=== PATIENT | female | born 1960 | race Caucasian/White ===

== ENCOUNTER 2016-10-04 10:16 | Outpatient (CLI) | payer MEDICARE ==
[~2016-10-04] VITALS: Ht 152.4 cm; Wt 79.0 kg
--- NOTE | ~2016-10-04 | HEMODYNAMI ---
PATIENT:SUZANNA GAXIOLA MEDICAL RECORD: [id number] : 58 LOCATION:[facility]# [id number] ADMISSION DATE: 10/04/16 Generatedon:10/04/201611:36 Patient name: SUZANNA GAXIOLA Patient #: [id number] SSN: [id number] : 1960 Date of study: 10/04/2016 Page: Of Hemodynamic Procedure Report Patient Data Patient Demographics Procedure consent was obtained First Name: SUZANNA Gender: Female Last Name: KHALIDA : 1960 Patient #: [id number] Age: 56 year(s) Race: Unknown SSN: [id number] Additional ID: [id number] Contact details Address: [address] [place] [address] [address] State: [place] City: [place] Zip code: [address] Admission Admission Data Admission Date: 10/04/2016 Admission Time: 10:16 Arrival Date: 10/04/2016 Arrival Time: 10:16 Admit Source: Emergency department Height (in.): 64 BSA: 1.83 (m2) Height (cm.): 162.56 BMI: 29.18 (kg/m2) Weight (lbs.): 170 Weight (kg.): 77.11 Lab Results Lab Result Date: 10/04/2016 Lab Result Time: 0:00 Biochemistry Name Units Result Min Max BUN mg/dl 14 --(--*-)-- 7 18 Creatinine mg/dl 1.1 --(--*-)-- 0.6 1.3 CBC Name Units Result Min Max Hemoglobin g/dl 16.2 --(--*-)-- 13.5 17.5 Procedure Procedure Types Cath Procedure Diagnostic Procedure LHC LHC w/Coronaries PCI Procedure AMI-BMS/SANJUANA Initial Miscellaneous Procedures Moderate Sedation up to 30 minutes Procedure Description Procedure Date Procedure Date: 10/04/2016 Procedure Start Time: 11:13 Procedure End Time: 11:29 Procedure Staff Name Function Souleymane Irving MD Performing Physician Sudha Awan RT Scrub Yenny Ervin RN Nurse Nat Blount RT Monitor Indication Chest pain Procedure Data Cath Procedure Fluoroscopy Diagnostic fluoroscopy Total fluoroscopy Time: 3.1 time: 3.1 min min Diagnostic fluoroscopy Total fluoroscopy dose: dose: 292.48 mGy 292.48 mGy Contrast Material Contrast Material Type Amount (ml) Isovue 370 90 Entry Location Entry Primary Successful Side Size Upsize Upsize Entry Closure Succes sful Closure Location (Fr) 1 (Fr) 2 (Fr) Remarks Device Remarks Femoral Right 6 Fr Exoseal artery Short Estimated blood loss: 5 ml Procedure Complications No complications Procedure Medications Medication Administration Route Dosage Oxygen NC 2 l/min Heparin Flush Bag added to field 2 bags (1000units/500ml NS) Lidocaine 2% added to field 20 Versed I.V. 0.5 mg Fentanyl I.V. 50 mcg Heparin Bolus I.V. 2000 units Integrilin (Bolus I.V. 6.8 ml 2mg/ml) Hemodynamics Rest BSA: 1.83 (m2) HGB: 16.2 (g/dl) O2 Consumption: Estimated: 175.06 (ml/min) O2 Co nsumption indexed: Estimated:95.66 (ml/min/m) Heart Rate: 70 (bpm) Pressure Samples Time Site Value (mmHg) Purpose Heart Use Rate(bpm) 11:19 LV 129/34,36 Snapshot 64 Gradients Valve Time Site Site Mean SEP/DFP Peak To Heart Use 1 2 (mmHg) (sec/min) Peak Rate (mmHg) (bpm) Aortic 11:19 LV AO 77 Snapshots Pre Cath Intra NCS Post Cath Vital Signs Time Heart Resp SPO2 NIBP (mmHg) Rhythm Pain Status Sedation Rate (ipm) (%) Level (bpm) 11:02:28 73 12 96 136/80(108) NSR 5 (11) , 10(A) Very distressing 11:07:04 71 16 98 142/67(96) NSR 5 (11) , 10(A) Very distressing 11:11:35 69 17 95 111/75(101) NSR 0 (11) , No 10(A) pain 11:15:57 73 29 97 115/67(97) NSR 0 (11) , No 9(A) pain 11:20:21 80 18 97 118/69(95) NSR 0 (11) , No 9(A) pain 11:24:45 70 16 96 121/69(93) NSR 0 (11) , No 9(A) pain 11:29:07 75 18 98 124/67(96) NSR 0 (11) , No 9(A) pain Medications Time Medication Route Dose Verified Delivered Reason Notes Effectiveness by by 11:08:41 Oxygen NC 2 Souleymane Ramon Per physician l/min St. Jaret Ervin RN, MD 11:08:51 Heparin Flush added 2 Souleymane Comer used for Bag to bags [facility] procedure (1000units/500ml field MD OCAMPO NS) 11:08:59 Lidocaine 2% added 20ml Souleymane Comer used for to vial [facility] procedure field MD OCAMPO 11:09:09 Versed I.V. 0.5 Souleymane Ramon for sedation mg [facility]. Jaret Ervin RN, MD 11:09:14 Fentanyl I.V. 50 Souleymane Ramon for sedation mcg [facility]. Jaret Ervin RN, MD 11:20:16 Heparin Bolus I.V. 2000 Souleyamne Ramon for dose units St. Jaret Ervin RN anticoagulation verified MD with dr coles 11:23:46 Integrilin I.V. 6.8 Souleymane [place] for wasted (Bolus 2mg/ml) ml St. Jaret Ervin RN antiplatelet 3.2 ml therapy Procedure Log Time Note 10:35:29 Informed consent obtained and on chart 10:35:33 Admit Source: Emergency department 10:35:37 Arrival Date: 10/04/2016 10:16:00 AM 10:35:58 Diagnostic Cath Status : Emergency 10:36:26 Indication : Chest pain 10:36:29 Yenny Ervin RN sent for patient. Start room use. 10:36:30 Time tracking: Regular hours 10:36:34 Plan of Care:Hemodynamics will remain stable., Cardiac rhythm will remain stable., Comfort level will be maintained., Respiratory function will remain adequate., Patient/ family verbilizes understanding of procedure., Procedure tolerated without complication., Recovers from procedure without complications.. 10:54:58 Patient received from ED to CCL 3 Alert and oriented. Tansferred to table in Supine position. 10:54:59 Warm blankets applied, and sarah hugger turned on for patient comfort. 10:55:00 Correct patient and procedure confirmed by team. 10:55:00 ECG and BP/O2 sat monitors applied to patient. 11:00:55 Vital chart was started 11:00:57 Baseline sample Acquired. 11:01:07 Rhythm: sinus rhythm , w/ ST elevation 11:01:08 Full Disclosure recording started 11:01:14 H&P Date Dictated: 10/04/2016 New H&P dictated by physician.. 11:01:15 Pre-procedure instructions explained to patient. 11:01:16 Pre-op teaching completed and patient verbalized understanding. 11:01:17 Family in waiting room. 11:01:18 Patient NPO since Midnight. 11:03:52 Is the patient allergic to Iodine/contrast media? No. 11:03:53 Was the patient premedicated? No 11:03:54 Is patient on blood thinner?Yes 11:03:58 ACC The patient was administered the following blood thiners within the last 24 hours: ACCPlavix 11:04:04 Patient diabetic? No. 11:04:06 Previous problem with sedation/anesthesia? No ? 11:04:08 Snore? Yes 11:04:09 Sleep apnea? No 11:04:10 Deviated septum? No 11:04:11 Opens mouth fully? Yes 11:04:11 Sticks out tongue? Yes 11:04:13 Airway obstruction? No ? 11:04:16 Dentures? No ? 11:04:20 Pre procedure: right dorsailis pedis pulse 1+ Palpable, but thready & weak; easily obliterated 11:04:25 Patient pain scale 5/10 ?. 11:04:34 IV patent on arrival in left forearm with 0.9% NaCl at O. 11:05:11 Lab results completed and on chart. 11:05:19 Right groin area was prepped with chlora-prep and draped in sterile fashion 11:05:21 Alarms reviewed by RShakir N. 11:05:21 Sharps counted by scrub and verified by R.N. 11:05:23 Physician arrived 11:05:24 --------ALL STOP TIME OUT------ 11:05:25 Final Timeout: patient, procedure, and site verified with staff and physician. All members of the team are in agreement. 11:05:27 Right groin site verified by team. 11:05:47 Physical assessment completed. ASA score P 2 - A patient with mild systemic disease as per Souleymane Irving MD. 11:05:51 Sedation plan: IV Moderate Sedation Versed, Fentanyl 11:06:05 Use device set Femoral PCI 11:06:06 Acist Syringe opened to sterile field. 11:06:07 Acist Hand Control opened to sterile field. 11:06:07 Bag Decanter opened to sterile field. 11:06:08 Medline Cath Pack opened to sterile field. 11:06:08 Terumo 6Fr Compton Sheath opened to sterile field. 11:06:10 St Chester 260cm J .035 wire opened to sterile field. 11:06:10 Merit BasixCompak Inflation Kit opened to sterile field. 11:06:11 Acist Manifold opened to sterile field. 11:06:12 Tegaderm 4 x 4 opened to sterile field. 11:08:41 Oxygen 2 l/min NC was administered by Yenny Ervin RN; Per physician; 11:08:51 Heparin Flush Bag (1000units/500ml NS) 2 bags added to field was administered by Souleymane Irving MD; used for procedure; 11:08:59 Lidocaine 2% 20ml vial added to field was administered by Souleymane Irving MD; used for procedure; 11::09 Versed 0.5 mg I.V. was administered by Yenny Ervin RN; for sedation; 11:09:14 Fentanyl 50 mcg I.V. was administered by Yenny Ervin RN; for sedation; 11:11:02 Zero performed for pressure channel P1 11:12:52 Procedure started. 11:13:04 Local anesthetic to right femoral artery with Lidocaine 2% by Souleymane Irving MD.INITIAL ACCESS ONLY 11:13:58 A 6 Fr Short sheath was inserted into the Right Femoral artery 11:14:31 Diagnostic Infinity 5Fr Multipack catheter opened to sterile field. 11:14:39 5 Fr jl4 guide catheter was inserted over the wire 11:14:54 LCA angiography performed. 11:14:56 Injector settings: Ml/sec: 3, Volume: 6, 11:16:47 Catheter removed. 11:17:00 5 Fr 3drc guide catheter was inserted over the wire 11:17:30 RCA angiography performed. 11:17:33 Injector settings: Ml/sec: 3, Volume: 6, 11:17:43 Catheter removed. 11:18:09 Granular BasixCompak Inflation Kit opened to sterile field. 11:18:10 Bran Whisper J 300cm 0.014 guide wire opened to sterile field. 11:18:11 Medtronic Launcher 6Fr JR 4.0 guide catheter opened to sterile field. 11:18:24 5 Fr pig guide catheter was inserted over the wire 11:19:39 LV hemodynamics recorded. 11:19:40 LV gram done using CAIN 11:19:42 Injector settings: Ml/sec: 5, Volume: 15, 11:19:51 EF : 50 % 11:19:54 Catheter removed. 11:20:00 6 Fr jr 4 guide catheter was inserted over the wire 11:20:09 Talkableisper wire advanced. 11:20:16 Heparin Bolus 2000 units I.V. was administered by Yenny Ervin RN; for anticoagulation; dose verified with dr coles 11:23:46 Integrilin (Bolus 2mg/ml) 6.8 ml I.V. was administered by Yenny Ervin RN; for antiplatelet therapy; wasted 3.2 ml 11::38 Inflation Number: 1 A Medtronic Integrity 3.0 X 15 stent was prepped and advanced across the Prox RCA. The stent was deployed at 14 KEITH for 0:30 (min:sec). 11:26:22 Stent catheter was removed intact over wire. 11::23 Wire removed. ::23 Guide catheter removed. 11::33 Cordis 6Fr Exoseal opened to sterile field. 11::45 Sheath removed intact; hemostasis achieved with Exoseal to the Right Femoral artery. 11::47 Procedure ended.(Physican Out) 11:27:00 Fluoroscopy time 03.10 minutes. 11:27:23 Fluoroscopy dose: 292.48 mGy 11:27:23 Flurop Dose total: 292.48 11:27: Contrast amount:Isovue 370 90ml. 11:27:28 Sharps counted by scrub and verified by R.N. 11:27:49 Insertion/operative site no bleeding no hematoma. 11:27:51 Post-op/insertion site Right Femoral artery dressed using a 4 x 4 and Tegaderm. 11:27:54 Post right femoral artery:stable 11:27:55 Post Procedure Pulses reassessed and unchanged 11:28:01 Post procedure rhythm: unchanged. 11:28:04 Estimated blood loss: 5 ml 11:28:05 Post procedure instruction explained to patient.Patient verbalizes understanding. 11:28:05 Patient needs reinforcement of post procedure teaching. 11:29:12 Procedure type changed to Cath procedure, Diagnostic procedure, LHC, LHC w/Coronaries, PCI procedure, AMI-BMS/SANJUANA Initial, Miscellaneous Procedures, Moderate Sedation up to 30 minutes 11:29:13 Procedure and supply charges have been captured, reviewed, submitted and are correct. 11:29:17 Procedure Complication : No complications 11:29:19 Vital chart was stopped 11:29:19 See physician's report for complete and final results. 11:29:23 Report given to [facility]. 11:29:27 Patient transfered to [facility] with Stretcher. 11:29:29 Procedure ended. 11:29:29 Full Disclosure recording stopped 11:29:37 ACC-PCI Only Patient was given prescriptions, or instructed by Souleymane Irving MD to start/continue the following medications upon discharge: Plavix 11:29:52 End room use (Document Last) 11:31:59 Patient Weight : 77.11 kg 11:32:08 Patient Height : 162.56 cm 11:34:34 Lab Result : Hemoglobin 16.2 g/dl 11:34:34 Lab Result : Creatinine 1.1 mg/dl 11:34:34 Lab Result : BUN 14 mg/dl Intervention Summary Intervention Notes Time ActionType Lesion and Equipment Action# Pressure Duration Attributes Used 11:25:38 Place stent Prox RCA Medtronic 1 14 00:30 Integrity 3.0 X 15 stent Device Usage Item Name Manufacture Quantity Catalog Hospital Part Current Minimal L ot# / Number Charge Number Stock Stock Serial# Code Acist Acist 1 93386 209567 056867 870011 20 Syringe Medical Systems Inc Acist Hand Acist 1 26042 271934 612855 588091 5 Control Medical Systems Inc Bag Microtek 1 2002S 954794 41088 315859 5 Genoom. Medline Cardinal 1 [id number] 664931 07536 766777 5 Cath Pack Health Terumo 6Fr Terumo 1 [id number] 924261 273927 798150 [address] Chester 1 342673 787215 702665 608734 30 260cm J .035 wire Merit Merit 2 [id number] 591282 055283 786435 15 Familiar Medical Inflation Kit Acist Acist 1 32358 091129 068034 974269 5 RessQ Technologies Medical Systems Inc Tegaderm 4 3M 1 1626W 882117 971158 502332 5 x 4 Diagnostic Cardinal 1 [id number] 376928 58703 814988 30 Pono [employer] 5Fr Multipack catheter Bran Bran 1 [id number] 982564 307237 837057 5 Whisper J Vascular 300cm 0.014 guide wire Medtronic Medtronic 1 [id number] 603951 76509 906714 1 Launcher 6Fr JR 4.0 guide catheter Medtronic Medtronic 1 [id number] 833707 093418 965588 1 0 [id number] Integrity 3.0 X 15 stent Cordis 6Fr Cardinal 1 EX600 156820 302139 335273 10 [facility] Muut Signature Audit [place] Stage Time Signature Unsigned Intra-Procedure 10/04/2016 Nat Blount 11:36:16 AM RT(R) Signatures Monitor : Nat Blount RT Signature : Date : Time : [address] [place] [address]
[2016-10-04 11:00] LABS: BASOPHILS 0.3 % (0-2); EOSINOPHILS 0.4 % (0-7); HEMATOCRIT 50.9 % (36.0-48.0); HEMOGLOBIN 16.2 g/dL (12-16); IMMATURE GRANULOCYTES 0.4 % (0-5); LYMPHOCYTES 18.9 % (15-50); MCH 27.7 pg (26.0-34.0); MCHC 31.8 g/dL (31.0-37.0); MCV 87.2 fL (80.0-100.0); MEAN PLATELET VOLUME 9.8 fL (7.4-10.4); MONOCYTES 4.1 % (2-11); NEUTROPHILS 75.9 % (40-80); PLATELET COUNT 233 10x3/uL (130-400); RBC 5.84 10x6/uL (4.00-5.40); RDW 15.6 % (11.5-14.5); WBC 17.2 10x3/uL (4.8-10.8)
[2016-10-04 11:16] LABS: ALBUMIN 3.3 g/dL (3.4-5.0); ALKALINE PHOSPHATASE 118 U/L (46-116); ALT (SGPT) 21 U/L (10-68); CALC OSMOLALITY 281 mosm/kg (275-300); CALCIUM 8.7 mg/dL (8.5-10.1); CARBON DIOXIDE 26.2 mmol/L (21.0-32.0); CHLORIDE - SERUM 105 mmol/L (98-107); CREATININE - SERUM 1.1 mg/dL (0.6-1.3); GLUCOSE 141 mg/dL (74-106); POTASSIUM - SERUM 4.2 mmol/L (3.5-5.1); PROTEIN - SERUM 7.2 g/dL (6.4-8.2); SODIUM 140 mmol/L (136-145); UREA NITROGEN 14 mg/dL (7-18); eGFR NON AFRICAN AMERICAN 54 mL/min (90-120)
[2016-10-04 11:57] LABS: CHOL - HDL RATIO 5.8 ratio (2.3-4.1); CHOLESTEROL, TOTAL 285 mg/dL (0-200); CKMB 57.5 U/L (0.0-3.6); CREATINE KINASE 777 UL (21-215); HDL CHOLESTEROL 49 mg/dL (32-96); LDL CHOLESTEROL 210 mg/dL (0-100); LDL-HDL RATIO 4.3 ratio (1.5-3.5); PRO BNP 63 pg/mL (0-125); TRIGLYCERIDE 130 mg/dL (30-200)
[2016-10-04 12:03] LABS: TROPONIN-I 5.501 ng/mL (0.000-0.060)
[2016-10-04] MEDS ORDERED: PLAVIX75 MG PO (12:04)
[2016-10-04] MEDS ORDERED: OXYBUTYNIN CHLOR5 MG PO (12:04)
[2016-10-04] MEDS ORDERED: ZOLOFT100 MG PO (12:05)
[2016-10-04] MEDS ORDERED: ZOCOR40 MG PO (12:06)
[2016-10-04] MEDS ORDERED: LEVOXYL150 MCG PO (12:06)
[2016-10-04] MEDS ORDERED: ATARAX 25 MG TA25 MG PO (12:07)
[2016-10-04] MEDS ORDERED: HYDROCODONE-APA1 TAB PO (12:08)
[2016-10-04] MEDS ORDERED: ROBAXIN-750750 MG PO (12:09)
--- NOTE | 2016-10-04 12:19 | NUR ---
TRANSFER FROM [facility]. VS WNL. RIGHT GROIN STABLE WITHOUT BLEEDING OR HEMATOMA NOTED. WILL MONITOR.
[2016-10-04 12:23] VITALS: BP 101/51; Ht 152.4 cm; Wt 79.0 kg
[2016-10-04 12:31] VITALS: BP 100/60
--- NOTE | 2016-10-04 13:09 | NUR ---
HEMATOMA NOTED. FEMSTOP APPLIED. WILL MONITOR.
--- NOTE | 2016-10-04 14:17 | NUR ---
FEMSTOP DCD WITHOUT BLEEDING OR HEMATOMA NOTED. WILL MONITOR.
--- NOTE | 2016-10-04 15:59 | NUR ---
BED REST UP. GROIN STABLE.
[2016-10-04 16:58] VITALS: BP 116/59
--- NOTE | 2016-10-04 17:15 | NUR ---
BED REST UP GROIN STABLE.
[2016-10-04 19:00] VITALS: BP 139/66
--- NOTE | 2016-10-04 19:00 | NUR ---
INITIAL ROUNDS MADE. PT SITTING UP IN BED WATCHING TV. ASSISTED PT UP TO BATHROOM. PT STEADY BUT INSTRUCTED IF WANTED ASSIST TO CALL ANYTIME. SHE AGREED. NO NEEDS OR C/O VOICED. WILL CONT TO MONITOR.
[2016-10-05] VITALS: BP 121/59
--- NOTE | 2016-10-05 00:05 | NUR ---
DIRECTOR OF MEDICAL REVIEW AT BEDSIDE FOR VS. NEEDS ADDRESSED AT THIS TIME. CALL LIGHT IN REACH. WILL CONT TO MONITOR.
[2016-10-05 05:38] VITALS: BP 140/77
[2016-10-05] MEDS ORDERED: LOPRESSOR25 MG PO (09:09)
--- NOTE | 2016-10-05 09:54 | NUR ---
IV AND TELEMETRY DCD. DC PLANS GIVEN. UNDERSTANDING VOICED. ESCORTED TO CAR BY W/C.
--- NOTE | 2016-10-08 08:26 | HP ---
PATIENT: SUZANNA LARES MEDICAL RECORD: [id number] ACCOUNT: [id number] LOCATION:[facility] : 58 ADMISSION DATE: 10/04/16 HISTORY AND PHYSICAL EXAMINATION HISTORY OF PRESENT ILLNESS: A 56-year-old lady with history of cerebrovascular accident, who is status post CVA, somewhat of a poor historian, has been having chest pain in [place], presented to the ER, was found to have inferior NE and was given thrombolytics, referred here for urgent angiography. She is currently having 5/5 jaw pain. PHYSICAL EXAMINATION: GENERAL: Pleasant female, in no acute distress. VITAL SIGNS: Heart rate 78 and blood pressure 124/64. HEENT: Normocephalic and atraumatic. NECK: No bruits are noted. HEART: Regular, questionable S4 gallop. II/ systolic ejection murmur. LUNGS: On exam, adequate air excursion. ABDOMEN: Soft and nontender. EXTREMITIES: Pulses are palpable 2+ with no edema. NEUROLOGIC: Not performed. IMPRESSION AND PLAN: Angiography intervention based on above. TRANSINT:[id number] Voice Confirmation ID: [id number] DOCUMENT ID: [id number] SJ MURRAY MD at 0826 CC: [id number] DICTATION DATE: 10/04/16 1110 HPLC CHEMIST: 10/04/16 1200 DEP CLI 10/05/16 [facility] [address] [place] [address]
--- NOTE | 2016-10-08 08:26 | DS ---
PATIENT:SUZANNA LARES :58 MEDICAL RECORD: [id number] DISCHARGE SUMMARY ADMISSION DATE: 10/04/16 DISCHARGE DATE: 10/05/16 DISCHARGE DIAGNOSES: 1. Acute myocardial infarction. 2. Hypertension. 3. Cerebrovascular disease, status post cerebrovascular accident. BRIEF HISTORY AND HOSPITAL COURSE: A 56-year-old lady, who transferred from [place] with acute inferior myocardial infarction, underwent emergent PTCA stenting of the right coronary, was brought back in approximately 2 weeks for intervention to the . Started on beta don. LV function is normal, so MELBA inhibitor was not started. Intolerance of statin in the past. I will see her back at the time of the next procedure. TRANSINT:[id number] Voice Confirmation ID: [id number] DOCUMENT ID: [id number] SJ MURRAY MD at 0826 CC: [id number] DICTATION DATE: 10/05/16 0825 DIGITAL PROJECT MANAGER: 10/06/16 0011 DEP CLI 10/05/[address] [address]
--- NOTE | 2016-10-08 08:26 | OP ---
PATIENT NAME: SUZANNA LARES MEDICAL RECORD: [id number] :58 LOCATION:[facility] ADMISSION DATE: SURGEON: SJ MURRAY MD DATE OF OPERATION: 10/04/2016 PROCEDURES: Left heart catheterization, selective coronary angiography, right femoral artery approach. CATHETERS: A 5-Serbian sheath, 5/4 left and right Radha, 5/4 pig. The procedure was tolerated and the patient returned to the batista. Sheath removed. ExoSeal device placed. FINDINGS: Left ventriculography in the 30-degree CAIN view shows mild inferior apical hypokinesis. Overall LV function, however, is preserved at 50%. CORONARY ANATOMY: LEFT MAIN: Left main is free of disease. LAD: Free of disease. CIRCUMFLEX: After take-off of the second OM and for the takeoff of the ____ circumflex has about 80% stenosis. RIGHT CORONARY ARTERY: Dominant artery, gives rise to PDA, is obviously the infarct-related artery and has a somewhat diffuse 90% stenosis. PLAN: Intervention of this vessel momentarily. DESCRIPTION OF PROCEDURE: A 5-Serbian sheath was changed for a 6-Serbian sheath. A JR4 guiding catheter provided excellent guide catheter support and is followed by a 300 cm Whisper wire was placed across all occluded right distal portion of vessel. Stent deployed was a 3.0 x 15 mm Integrity nondrug-eluting stent up to 14 atmospheres for 45 seconds. Final injection shows excellent resolution of a 90% stenosis, no significant residual. MAYRA flow was 3 throughout the procedure. Integrilin was used during the case. Sheath was closed with ExoSeal device. TRANSINT:[id number] Voice Confirmation ID: [id number] DOCUMENT ID: [id number] SJ MURRAY MD at 0826 CC: [id number] DICTATION DATE: 10/04/16 1134 WATER TESTER: 10/04/162026 [facility] CLI 10/05/16 [address] [id number] [facility] [address]
== END 2016-10-05 09:57 | disposition home or self-care (01) ==
LOC: D.M2 10:16 → D.CATH 10:16 → D.ER 10:16 → D.M2 11:38 → D.CATH 10-05 09:57
PROVIDERS: Emergency Medicine
DX: I21.19 ST elevation (STEMI) myocardial infarction involving other coronary artery of inferior wall (principal); I10 Essential (primary) hypertension; R68.84 Jaw pain; R07.9 Chest pain, unspecified; Z01.812 Encounter for preprocedural laboratory examination

== ENCOUNTER 2016-10-18 11:26 | Outpatient (CLI) | payer MEDICARE, MEDICAID ==
[~2016-10-18] VITALS: Ht 152.4 cm; Wt 75.9 kg
--- NOTE | ~2016-10-18 | OP ---
PATIENT NAME: SUZANNA RUDD MEDICAL RECORD: [id number] :58 LOCATION:[facility] ADMISSION DATE: SURGEON: SJ MURRAY MD DATE OF OPERATION: 10/18/2016 PROCEDURE IN DETAIL: After a 6-Maldivian sheath was placed in the right femoral artery, an XB LAD provided excellent guide catheter support followed by 300 cm [place] XT wire was placed across the 80% stenosis of the circumflex down to the distal portion of this vessel. Stent deployed was a 3.0 x 18 mm Integrity nondrug-eluting stent inflated up to 14 atmospheres for 45 seconds. Final angiography shows excellent resolution of diffuse 80% stenosis, no significant residual. MAYRA flow was 3 throughout the procedure. The patient was previously on Plavix. Heparin was used during the case. Sheath was closed with ExoSeal device. TRANSINT:[id number] Voice Confirmation ID: [id number] DOCUMENT ID: [id number] SJ MURRAY MD CC: [id number] DICTATION DATE: 10/18/16 1402 CALCINER OPERATOR HELPER: 10/18/16 2335 DEP CLI 10/18/[address] [address]
--- NOTE | ~2016-10-18 | HEMODYNAMI ---
PATIENT:SUZANNA RUDD MEDICAL RECORD: [id number] : 58 LOCATION:[facility] ADMISSION DATE: 10/18/16 Generatedon:10/18/201614:22 Patient name: SUZANNA RUDD Patient #: [id number] SSN: [id number] : 1960 Date of study: 10/18/2016 Page: Of Hemodynamic Procedure Report Patient Data Patient Demographics Procedure consent was obtained First Name: SUZANNA Gender: Female Last Name: BLAIRE : 1960 [facility] Initial: D Age: 56 year(s) Patient #: [id number] Race: Unknown SSN: [id number] Additional ID: [id number] Contact details [address]: [address] [place] [address] [address] State: [place] City: [place] Zip code: [address] Admission Admission Data Admission Date: 10/18/2016 Admission Time: 11:26 Procedure Procedure Types Cath Procedure PCI Procedure Coronary Stent Initial Miscellaneous Procedures Moderate Sedation up to 15 minutes Procedure Description Procedure Date Procedure Date: 10/18/2016 Procedure Start Time: 13:49 Procedure End Time: 14:22 Procedure Staff Name Function Souleymane Irving MD Performing Physician Yenny Ervin RN Nurse Jose Martínez RT Monitor Andre Carrington RT Scrub Procedure Data Cath Procedure Fluoroscopy Diagnostic fluoroscopy Total fluoroscopy Time: 1.5 time: 1.5 min min Diagnostic fluoroscopy Total fluoroscopy dose: 167 dose: 167 mGy mGy Contrast Material Contrast Material Type Amount (ml) Isovue 300 40 Entry Location Entry Primary Successful Side Size Upsize Upsize Entry Closure Succes sful Closure Location (Fr) 1 (Fr) 2 (Fr) Remarks Device Remarks Femoral Right 6 Fr Exoseal artery Short Estimated blood loss: 10 ml Procedure Complications No complications Procedure Medications Medication Administration Route Dosage Oxygen NC 2 l/min Heparin Flush Bag added to field 2 bags (1000units/500ml NS) Lidocaine 2% added to field 20 Heparin Bolus I.V. 4000 units Versed I.V. 1 mg Fentanyl I.V. 50 mcg Fentanyl I.V. 50 mcg Versed I.V. 1 mg Solumedrol I.V. 125 mg Benadryl I.V. 50 mg Pepcid I.V. 20 mg Zofran I.V. 4 mg 0.9% NaCl I.V. bolus 300 ml unlisted medication Hemodynamics Rest Heart Rate: 64 (bpm) Pressure Samples Time Site Value (mmHg) Purpose Heart Use Rate(bpm) 13:52 AO 125/61(87) Snapshot 69 13:56 AO 113/73(92) Snapshot 76 Snapshots Pre Cath Intra NCS Post Cath Vital Signs Time Heart Resp SPO2 etCO2 [id number] NIBP (mmHg) Rhythm Pain Sedation Rate (ipm) (%) (mmHg) (mmHg) Status Level (bpm) 13:40:34 68 21 98 0 0 145/82(122) NSR 0 (11) 10(A) , No pain 13:44:49 75 25 97 0 0 124/78(105) NSR 0 (11) 10(A) , No pain 13:49:00 71 18 97 0 0 130/75(106) NSR 0 (11) 10(A) , No pain 13:53:12 75 20 98 0 0 121/74(95) NSR 0 (11) 9(A) , No pain 13:57:24 81 18 98 0 0 107/69(97) NSR 0 (11) 9(A) , No pain 14:00:29 117 24 95 0 0 86/47(62) NSR 0 (11) 9(A) , No pain 14:03:37 110 23 95 0 0 72/43(53) NSR 0 (11) 9(A) , No pain 14:08:12 97 19 95 0 0 101/72(83) NSR 0 (11) 9(A) , No pain 14:12:11 91 14 96 0 0 118/81(112) NSR 0 (11) 10(A) , No pain 14:16:04 83 14 97 0 0 112/78(90) NSR 0 (11) 10(A) , No pain 14:20:08 86 18 95 0 0 109/78(95) NSR 0 (11) 10(A) , No pain Medications Time Medication Route Dose Verified Delivered Reason Notes Effectiveness by by 13:39:38 Oxygen NC 2 Souleymane Yenny Per l/min St. Jaret Ervin RN physician 13:39:47 Heparin Flush added 2 Souleymane Souleymane used for Bag to bags [facility] procedure (1000units/500ml field MD OCAMPO NS) 13:39:55 Lidocaine 2% added 20ml Souleymane Souleymane used for to vial [facility] procedure field MD OCAMPO 13:45:57 Fentanyl I.V. 50 Sou[address]ym[address] Y[address] for mcg [address] Jaret Ervin RN sedation 13:46:35 Versed I.V. 1 mg Souleymane Yenny for Maria FernandaJaret Ervin RN sedation 13:50:24 Fentanyl I.V. 50 Souleymane Yenny for mcg Maria FernandaJaret Ervin RN sedation 13:50:32 Versed I.V. 1 mg Souleymane Yenny for Maria FernandaJaret Ervin RN sedation 13:51:00 Heparin Bolus I.V. 4000 Souleymane Yenny for dose units [facility]. Jaret Ervin RN sedation verified MD with dr lemos 14:00:36 Solumedrol I.V. 125 Souleymane Yenny Per pt noted t o mg [facility] Jaret Ervin RN physician become tachycardic, and hot, pt skin noted to be turning bright red, prrgressing from neck down. pt c/o nausea. Dr. Lemos at bedside and aware of situation. 14:01:00 Benadryl I.V. 50 mg Souleymane Yenny Per [facility] Jaret kendall MD 14:01:49 Pepcid I.V. 20 mg Souleymane Yenny Per [facility] Jaret Ervin RN physician 14:02:33 0.9% NaCl I.V. 300 Souleymane Yenny For bolus ml [facility] Jaret Ervin RN hypotension 14:03:02 Zofran I.V. 4 mg Souleymane Yenny Per [facility] Jaret Ervin RN physician 14:18:27 pt condition Souleymane Yenny pt skin [facility] Jaret Ervin RN color has MD resoved to normal color, pt denies, nausea, heat, or shortness of breath. pt aaox4. pt will be continually monitored in post precedure. report given to recieveing alteration worker Log Time Note 13:29:08 Andre Carrington RT(R) sent for patient. Start room use. 13:29:09 Time tracking: Regular hours 13:29:13 Plan of Care:Hemodynamics will remain stable., Cardiac rhythm will remain stable., Comfort level will be maintained., Respiratory function will remain adequate., Patient/ family verbilizes understanding of procedure., Procedure tolerated without complication., Recovers from procedure without complications.. 13:32:17 Patient received from Pre/Post Procedure Room to CCL 1 Alert and oriented. Tansferred to table in Supine position. 13:32:18 Warm blankets applied, and sarah hugger turned on for patient comfort. 13:32:19 Correct patient and procedure confirmed by team. 13:32:20 Signed procedure consent form obtained from patient. 13:32:21 ECG and BP/O2 sat monitors applied to patient. 13:39:27 Vital chart was started 13:39:38 Oxygen 2 l/min NC was administered by Yenny Ervin RN; Per physician; 13:39:47 Heparin Flush Bag (1000units/500ml NS) 2 bags added to field was administered by Souleymane Irving MD; used for procedure; 13:39:55 Lidocaine 2% 20ml vial added to field was administered by Souleymane Irving MD; used for procedure; 13:42:46 Baseline sample Acquired. 13:42:50 Rhythm: sinus rhythm 13:42:53 Full Disclosure recording started 13:42:59 H&P Date Dictated: 10/18/2016 New H&P dictated by physician.. 13:43:00 Pre-procedure instructions explained to patient. 13:43:00 Pre-op teaching completed and patient verbalized understanding. 13:43:01 Family in waiting room. 13:43:03 Patient NPO since Midnight. 13:43:04 Is the patient allergic to Iodine/contrast media? No. 13:43:06 Is patient on blood thinner?Yes 13:43:08 ACC The patient was administered the following blood thiners within the last 24 hours: ACCPlavix 13:43:11 Patient diabetic? No. 13:43:16 Patient not . Patient is over age 55. 13:43:18 Previous problem with sedation/anesthesia? No ? 13:43:23 Snore? Yes 13:43:59 Sleep apnea? No 13:44:02 Deviated septum? No 13:44:03 Opens mouth fully? Yes 13:44:04 Sticks out tongue? Yes 13:44:18 Airway obstruction? No ? 13:44:21 Dentures? No ? 13:45:29 Pre procedure: right dorsailis pedis pulse 1+ Palpable, but thready & weak; easily obliterated 13:45:32 Patient pain scale 0/10 ?. 13:45:37 IV patent on arrival in left forearm with 0.9% NaCl at [facility]. 13:45:39 Lab results completed and on chart. 13:45:41 Right groin area was prepped with chlora-prep and draped in sterile fashion 13:45:42 Alarms reviewed by R. N. 13:45:43 Sharps counted by scrub and verified by R.N. 13:45:44 --------ALL STOP TIME OUT------ 13:45:45 Final Timeout: patient, procedure, and site verified with staff and physician. All members of the team are in agreement. 13:45:47 Right groin site verified by team. 13:45:51 Physical assessment completed. ASA score P 2 - A patient with mild systemic disease as per Souleymane Irving MD. 13:45:55 Sedation plan: IV Moderate Sedation Versed, Fentanyl 13:45:57 Fentanyl 50 mcg I.V. was administered by Yenny Ervin RN; for sedation; 13:46:35 Versed 1 mg I.V. was administered by Yenny Ervin RN; for sedation; 13:49:23 Use device set Femoral PCI 13:49:24 Tegaderm 4 x 4 opened to sterile field. 13:49:26 Acist Manifold opened to sterile field. 13:49:27 Acist Syringe opened to sterile field. 13:49:28 Acist Hand Control opened to sterile field. 13:49:28 Bag Decanter opened to sterile field. 13:49:28 Medline Cath Pack opened to sterile field. 13:49:29 Terumo 6Fr Saluda Sheath opened to sterile field. 13:49:29 St Chester 260cm J .035 wire opened to sterile field. 13:49:30 Merit BasixCompak Inflation Kit opened to sterile field. 13:49:42 Bran Prescott 300cm 0.014 guide wire opened to sterile field. 13:49:42 Cordis 6FR XBLAD 3.5 guide catheter opened to sterile field. 13:49:46 Procedure started. 13:49:51 Local anesthetic to right femoral artery with Lidocaine 2% by Souleymane Irving MD.INITIAL ACCESS ONLY 13:50:24 Fentanyl 50 mcg I.V. was administered by Yenny Ervin RN; for sedation; 13:50:32 Versed 1 mg I.V. was administered by Yenny Ervin RN; for sedation; 13:50:57 A 6 Fr Short sheath was inserted into the Right Femoral artery 13:51:00 Heparin Bolus 4000 units I.V. was administered by Yenny Ervin RN; for sedation; dose verified with dr lemos 13:51:45 6 Fr XBLAD 3.5 guide catheter was inserted over the wire 13:53:58 ACC [facility] has [facility]% [facility]. 13:54:01 ACC Pre-intervention MAYRA Flow is 3. 13:55:18 Prescott wire advanced. 13:56:54 Wire advanced across lesion. 13:57:03 Inflation Number: 1 A Tangerine Powertronic Integrity 3.0 X 18 stent was prepped and advanced across the Mid CX. The stent was deployed at 12 KEITH for 0:45 (min:sec). 13:58:34 Stent catheter was removed intact over wire. 13:58:34 Wire removed. 13:58:35 Guide catheter removed. 13:58:45 Cordis 6Fr Exoseal opened to sterile field. 13:59:00 Sheath removed intact; hemostasis achieved with Exoseal to the Right Femoral artery. 13:59:03 Procedure ended.(Physican Out) 13:59:22 Fluoroscopy time 01.50 minutes. 13:59:26 Flurop Dose total: 167 13:59:26 Fluoroscopy dose: 167 mGy 14:00:06 Contrast amount:Isovue 300 40ml. 14:00:11 Sharps counted by scrub and verified by R.N. 14:00:13 Insertion/operative site no bleeding no hematoma. 14:00:36 Solumedrol 125 mg I.V. was administered by Yenny Ervin RN; Per physician; pt noted to become tachycardic, and hot, pt skin noted to be turning bright red, prrgressing from neck down. pt c/o nausea. Dr. Lemos at bedside and aware of situation. 14:00:45 Post-op/insertion site Right Femoral artery dressed using a 4 x 4 and Tegaderm. 14:00:48 Post Procedure Pulses reassessed and unchanged 14:00:59 Post-procedure physical assessment completed. ASA score P 2 - A patient with mild systemic disease as per Souleymane Irving MD. 14:01:00 Benadryl 50 mg I.V. was administered by Yenny Ervin RN; Per physician; 14:01:02 Post procedure rhythm: unchanged. 14::13 Estimated blood loss: 10 ml 14:01:15 Post procedure instruction explained to patient.Patient verbalizes understanding. 14:01:15 Patient needs reinforcement of post procedure teaching. 14:01:36 Procedure type changed to Cath procedure, PCI procedure, Coronary Stent Initial, Miscellaneous Procedures, Moderate Sedation up to 15 minutes 14:01:49 Pepcid 20 mg I.V. was administered by Yenny Ervin RN; Per physician; 14:01:56 Procedure Complication : No complications 14:02:18 Procedure and supply charges have been captured, reviewed, submitted and are correct. 14:02:33 0.9% NaCl 300 ml I.V. bolus was administered by Yenny Ervin RN; For hypotension; 14:03:02 Zofran 4 mg I.V. was administered by Yenny Ervin RN; Per physician; 14:18:27 pt condition was administered by Yenny Ervin RN; ; pt skin color has resoved to normal color, pt denies, nausea, heat, or shortness of breath. pt aaox4. pt will be continually monitored in post precedure. report given to geovanny BOND 14:21:59 Vital chart was stopped 14:22:00 See physician's report for complete and final results. 14:22:11 Report given to Pre/Post Procedure Room. 14:22:16 Patient transfered to Pre/Post Procedure Room with Stretcher. 14:22:19 Procedure ended. 14:22:19 Full Disclosure recording stopped 14:22:26 End room use (Document Last) Intervention Summary Intervention Notes Time ActionType Lesion and Equipment Action# Pressure Duration Attributes Used 13:57:03 Place stent Mid CX Medtronic 1 12 00:45 Integrity 3.0 X 18 stent Device Usage Item Name Manufacture Quantity Catalog Hospital Part Current Minimal Lot# / Number Charge Number Stock Stock Serial# Code Tegaderm 4 1 [id number] [id number] 214062 5 x 4 Acist Acist 1 91453 978206 986691 403841 5 Manifold [employer] Inc Acist Acist 1 08680 550081 166542 075932 20 Syringe Medical Systems Inc Acist Hand Acist 1 35780 829747 863998 896263 5 Control Medical [employer] Inc Bag Microtek 1 2002S 002572 18092 361662 5 Decanter [employer] Inc[employer] Medline Cardinal 1 [id number] 705589 01295 048556 5 Cath Pack Health Terumo 6Fr Terumo 1 [id number] 119516 668048 099305 [address] Chester 1 [id number] 185859 816455 243070 30 260cm J .035 wire Merit Merit 1 [id number] 777424 525826 314841 15 BasixCompak Medical Inflation Kit Bran Bran 1 [id number] 325305 281682 411360 1 Prescott Vascular 300cm 0.014 guide wire Cordis 6FR Cardinal 1 [id number] 690508 671223 598062 10 XBLAD 3.5 Health guide catheter Medtronic Medtronic 1 [id number] 328312 064976 9 [id number] Integrity 3.0 X 18 stent Cordis 6Fr Cardinal 1 [id number] 201135 433190 649480 10 [facility] [employer] Signature Audit [place] Stage Time Signature Unsigned Intra-Procedure 10/18/2016 Jose Martínez 2:22:49 PM RT(R) Signatures Monitor : Jose Martínez RT Signature : Date : Time : [facility] [address] [place] [address]
[~2016-10-18 11:26] MED LIST: ATARAX 25 MG TA25 MG PO; HYDROCODONE-APA1 TAB PO; LEVOXYL150 MCG PO; LOPRESSOR25 MG PO; OXYBUTYNIN CHLOR5 MG PO; PLAVIX75 MG PO; ROBAXIN-750750 MG PO; ZOCOR40 MG PO; ZOLOFT100 MG PO
[2016-10-18 11:59] VITALS: BP 141/80; Ht 152.4 cm; Wt 75.9 kg
[2016-10-18 12:16] LABS: BASOPHILS 0.7 % (0-2); EOSINOPHILS 5.7 % (0-7); HEMOGLOBIN 15.6 g/dL (12-16); IMMATURE GRANULOCYTES 0.4 % (0-5); LYMPHOCYTES 34.2 % (15-50); MCH 28.1 pg (26.0-34.0); MCHC 32.5 g/dL (31.0-37.0); MCV 86.3 fL (80.0-100.0); MEAN PLATELET VOLUME 9.1 fL (7.4-10.4); MONOCYTES 5.5 % (2-11); NEUTROPHILS 53.5 % (40-80); RBC 5.56 10x6/uL (4.00-5.40); RDW 15.3 % (11.5-14.5); WBC 13.8 10x3/uL (4.8-10.8)
[2016-10-18 12:23] LABS: PLATELET COUNT 283 10x3/uL (130-400)
[2016-10-18 12:32] LABS: ANION GAP 11.4 mmol/L (8-16); CALCIUM 9.4 mg/dL (8.5-10.1); CARBON DIOXIDE 29.1 mmol/L (21.0-32.0); CREATININE - SERUM 1.3 mg/dL (0.6-1.3); POTASSIUM - SERUM 4.5 mmol/L (3.5-5.1)
--- NOTE | 2016-10-18 15:08 | NUR ---
1450 LYING FLAT, ROOM AIR, NO RESP DISTRESS. NSR RATE 64 W NO C/O CHEST PAIN. PULSES PALP X 4. FAMILY AT BEDSIDE. R GROIN 6F EXOSEAL C/D/I WITH NO HEMATOMA OR BLEEDING.
--- NOTE | 2016-10-18 16:48 | NUR ---
1530 RESTING WITH EYES CLOSED. NSR RATE 63 W NO C/O CHEST PAIN. PULSES PALP X 4. R GROIN 6F EXOSEAL C/D/I WITH NO HEMATOMA OR BLEEDING. VITALS ALL WNL. EATING TURKEY SANDWICH WITH ASSIST FROM PATIENT FAMILY. 1645 VOIDED VIA BEDPAN. ALL VITALS WNL. R GROIN 6F EXOSEAL C/D/I WITH NO HEMATOMA OR BLEEDING.
--- NOTE | 2016-10-18 17:00 | NUR ---
REPORT RECEIVED FROM JAQUELINE NORIEGA RN, RIGHT GROIN CDI, REINFORCED TO KEEP RIGHT LEG STRAIGHT AND HEAD ON PILLOW, VERBAL UNDERSTANDING NOTED, FAMILY AT SIDE, DENIES CHEST PAIN.
--- NOTE | 2016-10-18 18:30 | NUR ---
IV D'C WITH CATH TIP INTACT, WRITTEN AND VERBAL INSTRUCTIONS GIVEN TO PT AND FAMILY, DENIES FURTHUR NEEDS
== END 2016-10-18 18:45 | disposition home or self-care (01) ==
LOC: D.CATH 11:26
PROVIDERS: Internal Medicine Interventional Cardiology
DX: I25.10 Atherosclerotic heart disease of native coronary artery without angina pectoris (principal)